=== PATIENT | female | born 1995 | race Caucasian/White ===

== ENCOUNTER 2017-06-10 17:39 | Emergency (ER) | payer OTHER ==
[2017-06-10] MEDS: ACETAMINOPHEN 325 MG TAB PO (20:24)
[2017-06-10] MEDS: ONDANSETRON (ODT) 4 MG TAB ODT (20:24)
[2017-06-10] MEDS: SOD CHLORIDE 0.9% 500 ML IV ×2 (20:24→21:32)
[2017-06-10 20:50] LABS: ADD MAN DIFF? NO
[2017-06-10 20:54] LABS: ABNORMAL IP MESSAGE 1; BASOPHILS % 0.3 % (0.0-2.0); EOSINOPHILS # 0.1 10^3/ul (0.0-0.5); EOSINOPHILS % 1.2 % (0.0-7.0); HEMATOCRIT 30.8 % (37.0-47.0); HEMOGLOBIN 8.9 g/dl (12.0-16.0); LYMPHOCYTES # 1.7 10^3/ul (0.8-2.9); LYMPHOCYTES % 27.9 % (18.0-55.0); MEAN CORPUSCULAR HEMOGLOBIN 16.7 pg (29.0-33.0); MEAN CORPUSCULAR HGB CONC 28.9 g/dl (32.0-37.0); MEAN CORPUSCULAR VOLUME 57.9 fl (72.0-104.0); MONOCYTE # 0.6 10^3/ul (0.3-0.9); MONOCYTES % 10.7 % (0.0-13.0); NEUTROPHIL # 3.6 10^3/ul (1.6-7.5); NEUTROPHILS % 59.7 % (30.0-74.0); PLATELET COUNT 422 10^3/UL (140-415); RED BLOOD COUNT 5.32 10^6/ul (4.20-5.40); RED CELL DISTRIBUTION WIDTH 19.9 % (11.5-14.5)
[2017-06-10 21:04] LABS: ADD UMIC YES; UR ASCORBIC ACID 40 mg/dL (NEGATIVE); UR BACTERIA FEW /HPF (NONE SEEN); UR BILIRUBIN (Dip) NEGATIVE (NEGATIVE); UR BLOOD (Dip) NEGATIVE (NEGATIVE); UR CLARITY CLOUDY (CLEAR); UR COLOR YELLOW (YELLOW); UR GLUCOSE (Dip) NEGATIVE (NEGATIVE); UR KETONES (Dip) NEGATIVE (NEGATIVE); UR LEUKOCYTE ESTERASE (Dip) 1+ Leu/ul (NEGATIVE); UR MUCUS MANY /HPF (NONE SEEN); UR NITRITE (Dip) NEGATIVE (NEGATIVE); UR NONSQUAMOUS EPITHELIAL CELL 1 /HPF (NONE SEEN); UR RBC 4 /HPF (0-5); UR SPECIFIC GRAVITY (Dip) 1.027 (1.003-1.030); UR SQUAMOUS EPITHELIAL CELL MANY /HPF (FEW); UR TOTAL PROTEIN (Dip) 1+ mg/dl (NEGATIVE); UR UROBILINOGEN (Dip) 1+ mg/dL (NEGATIVE); UR WBC 9 /HPF (0-5)
[2017-06-10 21:11] LABS: MEAN PLATELET VOLUME 9.9 fl (7.4-10.4)
[2017-06-10 21:21] LABS: ALANINE AMINOTRANSFERASE 30 IU/L (13-69); ALBUMIN 4.7 g/dl (3.3-4.9); ALBUMIN/GLOBULIN RATIO 1.38; ALKALINE PHOSPHATASE 52 IU/L (42-121); ANION GAP 18 (8-16); ASPARTATE AMINO TRANSFERASE 24 IU/L (15-46); BLOOD UREA NITROGEN 6 mg/dl (7-20); CALCIUM 9.1 mg/dl (8.4-10.2); CARBON DIOXIDE 25 mmol/L (21-31); CHLORIDE 103 mmol/L (97-110); CREATININE 0.42 mg/dl (0.44-1.00); GLUCOSE 98 mg/dl (70-220); POTASSIUM 3.2 mmol/L (3.5-5.1); SODIUM 143 mmol/L (135-144); TOTAL PROTEIN 8.1 g/dl (6.1-8.1)
[2017-06-10 22:15] LABS: ANISOCYTOSIS 2+ (0-0); BAND NEUTROPHILS #M 0.1 10^3/ul (0.0-0.6); BAND NEUTROPHILS % (M) 3 % (0-10); BASOPHILS % (M) 1 % (0-2); BURR CELLS 1+ (0-0); EOSINOPHILS % (M) 1 % (0-7); HYPOCHROMASIA 2+ (0-0); LYMPHOCYTES #M 1.7 10^3/ul (0.8-2.9); LYMPHOCYTES % (M) 29 % (18-55); MICROCYTOSIS 2+ (0-0); MONOCYTE #M 0.6 10^3/ul (0.3-0.9); MONOCYTES % (M) 10 % (0-13); OVALOCYTES 1+ (0-0); PLATELET ESTIMATE NORMAL; POIKILOCYTOSIS 2+ (0-0); REACTIVE LYMPHOCYTES #M 0.1 10^3/ul (0.0-0.0); REACTIVE LYMPHOCYTES% (M) 2 % (0-0); SEG NEUT #M 3.2 10^3/ul (1.6-7.5); SEGMENTED NEUTROPHILS (M) % 54 % (30-74); SMUDGE%M 9 % (0-0)
[2017-06-10] MEDS: ONDANSETRON 4 MG INJ IV (23:00)
[2017-06-10] MEDS: POTASSIUM CHLORIDE (SR) 10 MEQ TAB PO (23:20)
[2017-06-10] MEDS: CEFTRIAXONE 1 GM/50 ML (PMX) 50 ML IVPB (23:23)
== END 2017-06-10 23:55 | disposition home or self-care (01) ==
LOC: FTE 17:39
DX: O21.9 Vomiting of pregnancy, unspecified (principal); O23.41 Unspecified infection of urinary tract in pregnancy, first trimester; R10.2 Pelvic and perineal pain; Z3A.09 9 weeks gestation of pregnancy
CPT/HCPCS: 36415; 76801; 80053; 81001; 84702; 85025; 86900; 86901; 87086; 87400; 96361; 96365; 96375; 99285-25

== ENCOUNTER 2018-01-05 12:40 | Inpatient (IN) | payer OTHER ==
[2018-01-05] MEDS ORDERED: MISOPROSTOL 200 MCG TAB PR (13:00)
[2018-01-05] MEDS ORDERED: BUTORPHANOL 2 MG INJ IV (13:00)
[2018-01-05] MEDS ORDERED: LACTATED RINGER'S 1,000 ML IV* (13:00)
[2018-01-05] MEDS ORDERED: METHYLERGONOVINE 0.2 MG INJ IM (13:00)
[2018-01-05] MEDS ORDERED: CARBOPROST 250 MCG INJ IM (13:00)
[2018-01-05] MEDS ORDERED: LIDOCAINE 1% (MPF) 30 ML INJ INJ (13:00)
[2018-01-05] MEDS ORDERED: OXYTOCIN 30 UNITS/LR 500 ML IV (13:00)
[2018-01-05] MEDS ORDERED: LIDOCAINE 0.5% (SDV) 50 ML INJ (13:19)
[2018-01-05] MEDS: OXYTOCIN 30 UNITS/LR 500 ML IV ×3 (13:58→16:11)
[2018-01-05 14:04] LABS: ADD MAN DIFF? NO
[2018-01-05 14:06] LABS: WHITE BLOOD COUNT 20.6 10^3/ul (4.8-10.8)
[2018-01-05 14:06] LABS: ABNORMAL IP MESSAGE 1; BASOPHIL # 0.1 10^3/ul (0.0-0.1); BASOPHILS % 0.4 % (0.0-2.0); EOSINOPHILS % 0.1 % (0.0-7.0); HEMATOCRIT 32.7 % (37.0-47.0); HEMOGLOBIN 8.8 g/dl (12.0-16.0); LYMPHOCYTES # 2.7 10^3/ul (0.8-2.9); LYMPHOCYTES % 12.9 % (18.0-55.0); MEAN CORPUSCULAR HEMOGLOBIN 17.8 pg (29.0-33.0); MEAN CORPUSCULAR HGB CONC 26.9 g/dl (32.0-37.0); MEAN CORPUSCULAR VOLUME 66.2 fl (72.0-104.0); MEAN PLATELET VOLUME 8.9 fl (7.4-10.4); MONOCYTE # 0.9 10^3/ul (0.3-0.9); MONOCYTES % 4.4 % (0.0-13.0); NEUTROPHIL # 16.7 10^3/ul (1.6-7.5); NEUTROPHILS % 80.7 % (30.0-74.0); NUCLEATED RED BLOOD CELLS # 0.1 10^3/ul (0.0-0.0); NUCLEATED RED BLOOD CELLS% 0.6 /100WBC (0.0-0.0); PLATELET COUNT 458 10^3/UL (140-415); RED BLOOD COUNT 4.94 10^6/ul (4.20-5.40); RED CELL DISTRIBUTION WIDTH 34.5 % (11.5-14.5)
[2018-01-05 14:08] LABS: POSITIVE DIFF @See below
[2018-01-05 14:25] LABS: INR 0.99; PROTIME 13.2 Sec (11.9-14.9)
[2018-01-05 14:26] LABS: PARTIAL THROMBOPLASTIN TIME 27.2 Sec (23.0-35.0)
[2018-01-05 15:12] LABS: RAPID PLASMA REAGIN NONREACTIVE (NR)
[2018-01-05] MEDS ORDERED: HYDROCODONE/APAP (5/325) TAB PO ×2 (15:30)
[2018-01-05] MEDS ORDERED: ACETAMINOPHEN 325 MG TAB PO (15:30)
[2018-01-05] MEDS ORDERED: ONDANSETRON 4 MG INJ IV (15:30)
[2018-01-05] MEDS ORDERED: OXYCODONE/ASPIRIN (4.88/325) TAB PO ×2 (15:30)
[2018-01-05] MEDS: WITCH HAZEL/GLYCERIN PAD PR (16:07)
[2018-01-05] MEDS: BENZOCAINE 20% 56 ML SPRAY TOP (16:07)
[2018-01-05] MEDS: DIBUCAINE 1% 30 GM OINT PR (16:08)
[2018-01-05] MEDS: LANOLIN 7 GM TUBE TOP (16:08)
[2018-01-05] MEDS: IBUPROFEN 600 MG TAB PO ×2 (17:31→23:52)
[2018-01-05] MEDS: SENNA/DOCUSATE NA (8.6MG/50MG) TAB PO (21:51)
[2018-01-06] MEDS: IBUPROFEN 600 MG TAB PO ×3 (05:31→17:33)
[2018-01-06 06:37] LABS: ADD MAN DIFF? NO
[2018-01-06 06:43] LABS: ABNORMAL IP MESSAGE 1; BASOPHIL # 0.1 10^3/ul (0.0-0.1); BASOPHILS % 0.4 % (0.0-2.0); EOSINOPHILS # 0.1 10^3/ul (0.0-0.5); EOSINOPHILS % 0.3 % (0.0-7.0); HEMATOCRIT 30.7 % (37.0-47.0); HEMOGLOBIN 8.3 g/dl (12.0-16.0); LYMPHOCYTES # 3.5 10^3/ul (0.8-2.9); LYMPHOCYTES % 22.9 % (18.0-55.0); MEAN CORPUSCULAR HEMOGLOBIN 17.9 pg (29.0-33.0); MEAN CORPUSCULAR VOLUME 66.2 fl (72.0-104.0); MEAN PLATELET VOLUME 9.2 fl (7.4-10.4); MONOCYTES % 6.4 % (0.0-13.0); NEUTROPHIL # 10.4 10^3/ul (1.6-7.5); NUCLEATED RED BLOOD CELLS # 0.1 10^3/ul (0.0-0.0); NUCLEATED RED BLOOD CELLS% 0.7 /100WBC (0.0-0.0); PLATELET COUNT 419 10^3/UL (140-415); RED BLOOD COUNT 4.64 10^6/ul (4.20-5.40); RED CELL DISTRIBUTION WIDTH 34.5 % (11.5-14.5)
[2018-01-06 06:43] LABS: WHITE BLOOD COUNT 15.1 10^3/ul (4.8-10.8)
[2018-01-06 06:45] LABS: POSITIVE DIFF @See below
[2018-01-06] MEDS: SENNA/DOCUSATE NA (8.6MG/50MG) TAB PO ×2 (10:28→21:25)
[2018-01-07] MEDS: IBUPROFEN 600 MG TAB PO ×3 (00:49→11:49)
[2018-01-07] MEDS: MEASLES,MUMPS,RUBELLA VACCINE INJ SC* (07:17)
[2018-01-07] MEDS: SENNA/DOCUSATE NA (8.6MG/50MG) TAB PO (09:34)
== END 2018-01-07 12:23 | disposition home or self-care (01) | DRG 775 ==
LOC: OBT 12:40 → L-D 12:40 → OBT 12:50 → L-D 12:54 → PP1 15:08
PROVIDERS: Obstetrics & Gynecology
PROC: 10E0XZZ Delivery of Products of Conception, External Approach (ICD-10-PCS; principal; 2018-01-05)
DX: O69.81X0 Labor and delivery complicated by cord around neck, without compression, not applicable or unspecified (principal); O69.82X0 Labor and delivery complicated by other cord entanglement, without compression, not applicable or unspecified; O62.3 Precipitate labor; O71.82 Other specified trauma to perineum and vulva; Z3A.38 38 weeks gestation of pregnancy; Z37.0 Single live birth
CPT/HCPCS: 85025; 85610; 85730; 86592; 86850; 86900; 86901

== ENCOUNTER 2018-03-28 20:19 | Emergency (ER) | payer OTHER ==
[2018-03-28] MEDS: KETOROLAC 30 MG INJ IM (22:54)
== END 2018-03-28 23:17 | disposition home or self-care (01) ==
LOC: FTE 20:19
DX: S10.93XA Contusion of unspecified part of neck, initial encounter (principal); W01.0XXA Fall on same level from slipping, tripping and stumbling without subsequent striking against object, initial encounter; Y92.9 Unspecified place or not applicable
CPT/HCPCS: 72040; 81025; 96372; 99284-25